=== PATIENT | female | born 1995 | race Caucasian/White ===

== ENCOUNTER 2018-05-03 19:25 | Emergency (ER) | payer OTHER ==
[~2018-05-03] VITALS: Ht 170.2 cm; Wt 82.1 kg
[2018-05-03 19:51] VITALS: Ht 170.2 cm; Wt 82.1 kg
[2018-05-03 21:25] LABS: BASOPHIL % 0.2 % (0-2); PLATELET COUNT 314 x10^3mcL (130-400); RED CELL DISTRIBUTION WIDTH 13.7 % (11.5-14.5)
[2018-05-03 21:51] LABS: ALBUMIN 3.8 g/dL (3.4-5.0); ALKALINE PHOSPHATASE 112 U/L (46-116); ALT/SGPT 33 U/L (14-59); AST/SGOT 25 U/L (15-37); CALCIUM 9.5 mg/dL (8.5-10.1); CARBON DIOXIDE 27.4 mmol/L (21-32); CREATININE SERUM 0.9 mg/dL (0.6-1.0); GFR1 > 60 mL/min; GLUCOSE SERUM 126 mg/dL (74-106); LIPASE 114 IU/L (73-393)
[2018-05-03 21:55] LABS: microscopic required? YES; urine erythrocyte TRACE (NEGATIVE)
[2018-05-03 21:56] LABS: TOTAL PROTEIN, SERUM 8.6 g/dL (6.4-8.2)
[2018-05-03 22:12] LABS: AMYLASE 49 U/L (25-115)
[2018-05-03 22:20] LABS: CHLORIDE SERUM 96 mmol/L (98-107); POTASSIUM SERUM 3.7 mmol/L (3.5-5.1); SODIUM SERUM 132 mmol/L (136-145)
[2018-05-04 00:27] VITALS: BP 126/91
== END 2018-05-04 00:27 | disposition home or self-care (01) ==
LOC: ED 19:25 → EDSEX 19:25 → ED 05-04 00:27
PROVIDERS: Specialist
DX: K52.9 Noninfective gastroenteritis and colitis, unspecified (principal); N39.0 Urinary tract infection, site not specified
CPT/HCPCS: 36415; J1885